=== PATIENT | female | born 1980 | race Caucasian/White ===

== ENCOUNTER 2016-06-15 07:29 | Emergency (ER) | payer MEDICAID ==
[~2016-06-15] VITALS: Wt 68.0 kg
[~2016-06-15 07:29] MED LIST: ALEVE220 MG PO; ANAPROX DS550 MG PO; BACTRIM DS 8001 TA1 PO; BIRTH CONTROL1 EAC1 PO; CIPROFLOXACIN500 MG PO; DOXYCYCLINE MO100 MG PO; FISH OIL500 M1 PO; FLOMAX0.4 MG PO; HYDROCODONE BIT1 T11 PO; MOTRIN600 MG PO; MULTIPLE VITAMI1 CAP PO; MULTIPLE VITAMI1 TAB PO; Motrin,Rufen800 MG PO; PYRIDIUM200 MG PO; SUDAFED60 MG PO; TRAMADOL HCL50 MG PO; TYLENOL W/CODEI1 TA2 PO; VICODIN 5/500 505 MG PO; Z-BEC1 TAB PO; ZOLOFT100 MG PO
[2016-06-15] MEDS ORDERED: CYCLOBENZAPRINE10 MG PO (10:47)
[2016-06-15] MEDS ORDERED: HYDROCODONE BIT1 T11 PO (10:47)
[2016-06-15] MEDS ORDERED: Motrin,Rufen800 MG PO (10:47)
== END 2016-06-15 11:46 | disposition home or self-care (01) ==
LOC: ED 07:29
DX: S06.0X0A Concussion without loss of consciousness, initial encounter (principal); S30.0XXA Contusion of lower back and pelvis, initial encounter; F17.200 Nicotine dependence, unspecified, uncomplicated; Z98.890 Other specified postprocedural states; Z79.899 Other long term (current) drug therapy; Z88.1 Allergy status to other antibiotic agents; Z91.040 Latex allergy status; W10.8XXA Fall (on) (from) other stairs and steps, initial encounter; Y93.9 Activity, unspecified; Y92.89 Other specified places as the place of occurrence of the external cause; Y99.9 Unspecified external cause status